=== PATIENT | female | born 1975 | race Caucasian/White ===

== ENCOUNTER → 2017-12-15 | Outpatient (CLI) | payer BC ==
--- NOTE | 2017-12-15 18:41 | MR ---
EXAMINATION TYPE: MR shoulder RT wo con DATE OF EXAM: 12/15/2017 COMPARISON: Outside x-ray dated 11/25/2017 HISTORY: Pain TECHNIQUE: Multiplanar, multisequence imaging of the right shoulder is performed without contrast. FINDINGS: There is fluid in the subacromial subdeltoid bursa. There is diffuse tendinopathy of the distal 2 cm of the supraspinatus and infraspinatus tendons. Ther e is a partial through thickness tear involving the distal margin of the supraspinatus tendon measuri ng approximately 9 mm involving the anterior fibers. There is a partial through thickness tear of the conjoined portion of the tendon measuring 5 mm. No retraction. Subscapularis tendon intact. Labrum are intact. Glenohumeral joint has a normal appearance. Glenohumeral ligaments are intact. Hypertrophic change of the AC joint noted but no definite mass effect upon the rotator cuff. Suprascapular Notch has a normal appearance. Bicipital tendon is well situated the bicipital groove. However, the intracapsular portion of the bic eps tendon is not well visualized. IMPRESSION: 1. Diffuse tendinopathy of the supraspinatus tendon and conjoined portion of the supraspinatus and in fraspinatus tendons with a 9 mm through thickness partial tear involving the anterior fibers of the s upraspinatus tendon. There also is a suspicion for a 5 mm through thickness tear involving the conjoi jose alfredo portion of the tendon. No retraction. 2. The bicipital tendon is not seen within the rotator interval. Therefore, could not exclude a tear of the biceps tendon within the rotator interval. Correlate clinically.
== END | disposition home or self-care (01) ==
LOC: RADMRIMAIN 17:38
PROVIDERS: ATTEND Orthopaedic Surgery
DX: M75.101 Unspecified rotator cuff tear or rupture of right shoulder, not specified as traumatic (principal); M75.81 Other shoulder lesions, right shoulder

== ENCOUNTER → 2018-01-09 | Outpatient (CLI) | payer BC ==
[2018-01-09 12:02] LABS: Basophils % (A) 0 %; Eosinophils # (A) 0.1 k/uL (0-0.7); Eosinophils % (A) 2 %; HCT 36.6 % (34.0-46.0); HGB 11.4 gm/dL (11.4-16.0); Hypochromasia Slight; Lymphocytes # (A) 1.8 k/uL (1.0-4.8); Lymphocytes % (A) 24 %; MCH 25.7 pg (25.0-35.0); Mean Platelet Volume 7.1; Monocytes # (A) 0.4 k/uL (0-1.0); Monocytes % (A) 5 %; Neutrophils # (A) 5.1 k/uL (1.3-7.7); Neutrophils % (A) 67 %; Platelet Count 279 k/uL (150-450); RBC 4.41 m/uL (3.80-5.40); RDW 13.6 % (11.5-15.5); WBC 7.6 k/uL (3.8-10.6)
== END | disposition home or self-care (01) ==
LOC: LABPAT 11:32
PROVIDERS: ATTEND Orthopaedic Surgery
DX: Z01.812 Encounter for preprocedural laboratory examination (principal); M75.41 Impingement syndrome of right shoulder
CPT/HCPCS: 36415; 85025

== ENCOUNTER 2018-02-11 05:41 | Day surgery (SDC) | payer BC ==
[2018-02-06 08:41] VITALS: BMI 36.9
--- NOTE | 2018-02-10 14:10 | HP ---
HISTORY AND PHYSICAL DATE OF SERVICE: 02/11/2018 Stacey Nicholson is a 42-year-old patient seen with progressive right shoulder pain. Treatment options were discussed. She elected to proceed with arthroscopy. Consent was obtained. PAST MEDICAL HISTORY: Noncontributory. PAST SURGICAL HISTORY: Noncontributory. DAILY MEDICATIONS: None. ALLERGIES: None reported. SOCIAL HISTORY: Patient denies tobacco use. PHYSICAL EVALUATION RIGHT SHOULDER: Flexion 140 degrees, abduction 110 degrees, external rotation is 45 degrees with pain and weakness. Tenderness is noted along the anterolateral acromion rotator cuff insertion site. Impingement sign is positive at 90 degrees. Drop-arm sign is positive. Distal neurovascular exam is intact. RADIOGRAPHS OF THE RIGHT SHOULDER: Revealed a type 2 anterior acromion, evidence for acromioclavicular joint osteoarthritis. An MRI of the right shoulder revealed rotator cuff tendon tear. IMPRESSION: 1. Right shoulder impingement with rotator cuff tear. 2. Right shoulder acromioclavicular joint osteoarthritis. PLAN: Right shoulder arthroscopy with subacromial decompression, probable arthroscopic rotator cuff repair, possible Devin procedure and debridement. MMODL / IJN: [id number] /
[~2018-02-11 05:41] MED LIST: DEXAMETHASONE SOD PHOSPHATE 10 MG/ML 1 ML VIAL IV ONE; LACTATED RINGERS 1,000 ML IV SCH; LIDOCAINE 1% 20 ML VIAL (10MG/ML) FOR IV START INTRADERMA PRN; MIDAZOLAM 2 MG/2 ML VIAL IV PRN; ONDANSETRON 4 MG/2 ML VIAL IVP ONE; ceFAZolin IN SWFI 2 GM/20 ML SYRINGE IVP ONE; fentaNYL (PF) 50 MCG/ML 2 ML AMP IV PRN
[2018-02-11 06:26] VITALS: RESP 16
[2018-02-11] MEDS ORDERED: MIDAZOLAM 2 MG/2 ML VIAL ONE ×2 (06:43→07:28)
[2018-02-11] MEDS ORDERED: ONDANSETRON 4 MG/2 ML VIAL ONE (06:43)
[2018-02-11] MEDS ORDERED: SCOPOLAMINE 1.5MG/72HR PATCH TRANSDERM ONE (06:53)
[2018-02-11] MEDS ORDERED: ROCURONIUM BROMIDE 10 MG/ML 10 ML VIAL IV ONE (07:28)
[2018-02-11] MEDS ORDERED: LIDOCAINE 2%-EPI 1:100,000 20 ML VIAL ONE (07:28)
[2018-02-11] MEDS ORDERED: PROPOFOL 10 MG/ML 20 ML VIAL IV ONE (07:28)
[2018-02-11] MEDS ORDERED: fentaNYL (PF) 50 MCG/ML 2 ML AMP ONE (07:28)
[2018-02-11] MEDS ORDERED: LIDOCAINE 1% INJ 10MG/ML (20 ML MDV) ONE (07:28)
[2018-02-11] MEDS ORDERED: ROPIVACAINE 5 MG/ML 30 ML VIAL ONE (07:28)
[2018-02-11] MEDS ORDERED: NEOSTIGMINE 1 MG/ML 10 ML VIAL ONE (07:28)
[2018-02-11] MEDS ORDERED: GLYCOPYRROLATE 0.2 MG/ML 2 ML VIAL ONE (07:28)
[2018-02-11] MEDS ORDERED: SUCCINYLCHOLINE CHLORIDE 100 MG/5 ML SYR IV ONE (07:28)
[2018-02-11] MEDS ORDERED: LACTATED RINGERS 1,000 ML IV ONE (09:07)
[2018-02-11 09:22] VITALS: TEMP 97
--- NOTE | 2018-02-11 09:23 | P.OP ---
Date of Procedure: 02/11/18 Preoperative Diagnosis: Right shoulder impingement Postoperative Diagnosis: 1. Right shoulder rotator cuff tear 2. Right shoulder impingement 3. Right shoulder acromioclavicular joint osteoarthritis 4. Right shoulder partial long head biceps tendon tear 5. Right shoulder superficial anterior labral tear Procedure(s) Performed: 1. Right shoulder arthroscopic rotator cuff repair 2. Right shoulder arthroscopic subacromial decompression 3. Right shoulder arthroscopic Devin procedure 4. Right shoulder arthroscopic biceps tenotomy 5. Right shoulder arthroscopic debridement labral tear Implants: 44.75 Arthrex swivel lock anchors Anesthesia: fran CUMMINGS Surgeon: Silver Rivas Envelope Maker #1: Benton Bonilla Estimated Blood Loss (ml): 10 Pathology: none sent Condition: stable Disposition: PACU Indications for Procedure: 42-year-old patient seen with progressive right shoulder pain. After treatment options were discussed, she elected to proceed with arthroscopy. Operative Findings: See description of procedure Description of Procedure: Patient underwent an interscalene block by department of anesthesia. The patient was then taken to the operative suite. The patient underwent a general anesthetic by the department of anesthesia. The patient was placed into a lateral position and secured. There was appropriate padding of the bony prominence. Right shoulder was then prepped and draped in normal sterile orthopedic fashion. We placed the extremity in 10 pounds of longitudinal traction. A posterior incision was now made for a posterior working portal site. The trocar and cannula were inserted into the glenohumeral joint. Arthroscopy was initiated. Spinal needle was now inserted anteriorly, to ascertain the anterior working portal site. An incision was now made in that area, a trocar was inserted followed by a probe. There was a superficial anterior labral tear present. There was no chondromalacia present of the humeral head or glenoid fossa. There was some hyperemia partial tearing long head biceps tendon. There was an obvious full-thickness tear of the distal supraspinatus visualized from glenohumeral side. I performed an arthroscopic biceps tenotomy. I debrided that superficial labral tear down to stable tissue. The residual labrum was found to be stable. Instruments now removed from the glenohumeral joint. Utilizing the posterior working portal site, the trocar and cannula were inserted into the subacromial space. Arthroscopy initiated. I made an incision 2 fingerbreadths lateral to the acromion. I introduced my trocar followed by my ArthroCare ablator. I now began ablating thick subacromial bursal tissue, which exposed the undersurface of the anterior acromion. There was diminished subacromial space. There was a very prominent anterior acromion. A motorized bur was introduced and a subacromial decompression was performed. I also excised some osteophytes off the inferior aspect of the distal clavicle. The AC joint was visualized and noted to be fairly arthritic. The motorized bur was introduced in the anterior portal site and a Devin procedure was performed without difficulty, decompressing the AC joint nicely. I turned my attention to the rotator cuff. There was a 2 cm rotator cuff tear. I debrided the margins getting down to stable tendon tissue. There appeared to be at this point a 2.5 cm tear along the anterior aspect of distal supraspinatus. I introduced my motorized bur and abraded the footprint area, getting some petechial bleeding. I now made an accessory portal site off the lateral aspect of the acromion. I punched 2 holes medial for medial row fixation with the assistance of Franklyn BLAIR carefully tapping the punch with a mallet as I held the punch and the camera. I now introduced both anchors into the pre-punched holes and Franklyn BLAIR tapped them with the mallet as I held anchors and the camera. Franklyn BLAIR now screwed the anchors in place a while I held the anchor guide and camera. All 8 limbs of suture were now passed through good bites of rotator cuff tendon. I now punched 2 holes for lateral row fixation again I held the punch and camera while Franklyn BLAIR used a mallet to tap in the punch. We now passed sutures through both anchors and individually I introduced the anchors into the pre-punch holes I held the anchor guide in position with one hand holding the camera with the other hand while Franklyn BLAIR tensioned the sutures and screwed in the anchors one at a time. All residual suture limbs were now clipped. We had good compression of the tendon along the entire footprint. I injected 1 mL Renue intra-articular. Instruments now removed from the portal sites. All portal sites were approximated with nylon suture. Sterile dressings were applied followed by a shoulder immobilizer. Benton BLAIR assisted in this complex case. The patient was awakened, transferred to a bed, and taken to recovery in stable condition.
[2018-02-11] MEDS ORDERED: HYDROcodone/APAP 7.5-325MG 1 EACH TAB PO ONE (10:44)
[2018-02-11 11:09] VITALS: BP 119/77; PULSE 71
--- NOTE | 2018-02-18 14:45 | CDI ---
Outpatient Documentation Clarification Form Date: 02/18/18 Primary Care Md Name: Amber Raya Phone: If any questions, call [phone] Patient Name: Stacey Nicholson Admit Date: 02/11/18 Discharge Date: 02/11/18 ATTENTION: The [facility] Coding Staff appreciate your assistance in clarifying documentation. Please respond to the clarification below the line at the bottom and electronically sign. The [facility] Coding staff will review the response and follow-up if needed. Please note: Queries are made part of the Legal Health Record. If you have any questions, please contact the Electrical Tryout Person. Dear Dr. Rivas, You performed a shoulder procedure on 02/11/18. Your operative note indicates that Anesthesia performed an interscalene block pre operatively and then proceeded to use general anesthesia. Can you indicate in an addendum to your operative note or on this form-below the line the purpose for the block? Interscalene block for post op pain management Or Interscalene block for intra-operative anesthesia in addition to the general anesthesia Thank you for your assistance. MTDD
--- NOTE | 2018-02-20 09:35 | CDI ---
Outpatient Documentation Clarification Form Date: 02/20/18 Library Monitor Name: Amber Raya Phone: If any questions, call Amber Raya, Granite Polisher Apprentice at [phone] Patient Name: Stacey Nicholson Admit Date: 02/11/18 Discharge Date: 02/11/18 ATTENTION: The [facility] Coding Staff appreciate your assistance in clarifying documentation. Please respond to the clarification below the line at the bottom and electronically sign. or do addendum to Op Note.The [facility] Coding staff will review the response and follow-up if needed. Please note: Queries are made part of the Legal Health Record. If you have any questions, please contact the Granite Polisher Apprentice. Dear Dr. Rivas, You performed a shoulder procedure on 02/11/18. Your operative note indicates that Anesthesia performed an interscalene block pre operatively and then proceeded to use general anesthesia. Can you indicate in an addendum to your operative note or on this form-below the line the purpose for the block? Interscalene block for post op pain management Or Interscalene block for intra-operative anesthesia in addition to the general anesthesia Interscalene block for postoperative pain management LAD
== END 2018-02-11 11:58 | disposition home or self-care (01) ==
LOC: OR 05:41
PROVIDERS: ATTEND Orthopaedic Surgery
DX: M75.101 Unspecified rotator cuff tear or rupture of right shoulder, not specified as traumatic (principal); M75.41 Impingement syndrome of right shoulder; M19.011 Primary osteoarthritis, right shoulder; S46.111A Strain of muscle, fascia and tendon of long head of biceps, right arm, initial encounter; S43.431A Superior glenoid labrum lesion of right shoulder, initial encounter; X58.XXXA Exposure to other specified factors, initial encounter; M25.711 Osteophyte, right shoulder
CPT/HCPCS: 29826; 29827; 29824; 64415; 81025; C1713 ×2; C1765; J2250; J1100; J2710; J2405; J2001; J3010; J2795; J0330; J2704; J0690

== ENCOUNTER 2020-03-11 08:11 | Emergency (ER) | payer BC ==
[2020-03-11 08:18] VITALS: BP 132/87; PULSE 98; RESP 18; TEMP 97.7
--- NOTE | 2020-03-11 08:30 | ED ---
Abdominal Pain HPI - General Chief Complaint: Abdominal Pain Stated Complaint: UTI Time Seen by Provider: 03/11/20 08:18 Source: patient, RN notes reviewed Mode of arrival: ambulatory Limitations: no limitations - History of Present Illness Initial Comments: 45-year-old female presents emergency Department chief complaint of dysuria. Patient states that she feels some tingling, burning when she urinates. She has some lower abdominal pressure. She states she said these symptoms for 1 week but states she has started with some lower back discomfort. She states equal both sides denies any bowel, bladder incontinence or retention or constipation or diarrhea no fevers chills or night sweats. No history of urinary tract infection denies any chance . - Related Data Previous Rx's Medication Instructions Recorded HYDROcodone/APAP 7.5-325MG [[place] 1 each PO Q6HR PRN #28 tab 02/11/18 7.5] Cephalexin [Keflex] 500 mg PO Q8HR #30 cap 03/11/20 Allergies Allergy/AdvReac Type Severity Reaction Status Date / Time No Known Allergies Allergy Verified 03/11/20 08:14 Review of Systems ROS Statement: Those systems with pertinent positive or pertinent negative responses have been documented in the HPI. ROS Other: All systems not noted in ROS Statement are negative. Past Medical History Past Medical History: GERD/Reflux History of Any Multi-Drug Resistant Organisms: None Reported Past Surgical History: Section, Cholecystectomy, Orthopedic Surgery Additional Past Surgical History / Comment(s): R rotator cuff Past Anesthesia/Blood Transfusion Reactions: Motion Sickness Past Psychological History: No Psychological Hx Reported Smoking Status: Never smoker Past Alcohol Use History: Occasional Past Drug Use History: None Reported - Past Family History Father Family Medical History: Cancer Additional Family Medical History / Comment(s): KIDNEY General Exam Limitations: no limitations General appearance: alert, in no apparent distress Head exam: Present: atraumatic, normocephalic, normal inspection Eye exam: Present: normal appearance, PERRL, EOMI. Absent: scleral icterus, conjunctival injection, periorbital swelling ENT exam: Present: normal exam, normal oropharynx, mucous membranes moist Neck exam: Present: normal inspection, full ROM. Absent: tenderness, meningismus, lymphadenopathy Respiratory exam: Present: normal lung sounds bilaterally. Absent: respiratory distress, wheezes, rales, rhonchi, stridor Cardiovascular Exam: Present: regular rate, normal rhythm, normal heart sounds. Absent: systolic murmur, diastolic murmur, rubs, gallop, clicks GI/Abdominal exam: Present: soft, tenderness (Suprapubic mild), normal bowel sounds. Absent: distended, guarding, rebound, rigid Back exam: Absent: CVA tenderness (R), CVA tenderness (L) Neurological exam: Present: alert, oriented X3 Skin exam: Present: warm, dry, intact, normal color. Absent: rash Course Vital Signs 03/11/20 08:14 Temperature 97.7 F Pulse Rate 98 Respiratory 18 Rate Blood Pressure 132/87 O2 Sat by Pulse 99 Oximetry Medical Decision Making - Medical Decision Making Urinalysis reveals greater than 182 WBCs and RBCs in her urinalysis. Patient does not have any flank pain consistent with a kidney stone. Patient also has underlying hemorrhagic cystitis. Patient will be started on antibiotics. Patient advised to have close follow-up she is advised have a urinalysis after course of antibiotics and return parameters were discussed. - Lab Data Lab Results 03/11/20 Range/Units 08:25 Urine Color Light Red Urine Appearance Turbid H (Clear) Urine pH 6.0 (5.0-8.0) Ur Specific [place] 1.019 (1.001-1.035) Urine Protein 2+ H (Negative) Urine Glucose (UA) Negative (Negative) Urine Ketones Trace H (Negative) Urine Blood Moderate H (Negative) Urine Nitrite Negative (Negative) Urine Bilirubin Negative (Negative) Urine Urobilinogen <2.0 (<2.0) mg/dL Ur Leukocyte Esterase Large H (Negative) Urine RBC >182 H (0-5) /hpf Urine WBC >182 H (0-5) /hpf Urine WBC Clumps Many H (None) /hpf Ur Squamous Epith Cells 8 H (0-4) /hpf Urine Bacteria Occasional H (None) /hpf Cellular Casts 10 (0) /lpf Hyaline Casts 40 H (0-2) /lpf Urine Mucus Many H (None) /hpf Disposition Clinical Impression: Urinary tract infection Disposition: HOME SELF-CARE Condition: Stable Instructions (If sedation given, give patient instructions): Urinary Tract Infection in Women (DC) Additional Instructions: Please return to the Emergency Department if symptoms worsen or any other concerns. Prescriptions: Cephalexin [Keflex] 500 mg PO Q8HR #30 cap Is patient prescribed a controlled substance at d/c from ED?: No Referrals: Ignacio Rod MD [Primary Care Provider] - 1-2 days Time of Disposition: 09:31
[2020-03-11 09:13] LABS: Appearance,Urine Turbid (Clear); Bacteria,Urine Occasional /hpf; Bilirubin,Urine Negative (Negative); Blood,Urine Moderate (Negative); Cellular Casts,Urine 10 /lpf (0); Color,Urine Light Red; Glucose,Urine (UA) Negative (Negative); Hyaline Casts,Urine 40 /lpf (0-2); Ketones,Urine Trace (Negative); Leukocyte Esterase,Urine Large (Negative); Mucus,Urine Many /hpf; Nitrite,Urine Negative (Negative); Protein,Urine 2+ (Negative); RBC,Urine >182 /hpf (0-5); Specific Gravity,Urine 1.019 (1.001-1.035); Squamous Epithelial Cell,Urine 8 /hpf (0-4); Urobilinogen,Urine <2.0 mg/dL (<2.0); WBC,Urine >182 /hpf (0-5)
== END 2020-03-11 09:37 | disposition home or self-care (01) ==
LOC: EC 08:11
DX: N30.90 Cystitis, unspecified without hematuria (principal); Z90.49 Acquired absence of other specified parts of digestive tract
CPT/HCPCS: 81001; 87086; 99284